=== PATIENT | female | born 2000 | race Caucasian/White ===

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

== ENCOUNTER 2022-08-27 23:56 | Emergency (ER) | payer BC, SELFPAY ==
[2022-08-27 23:57] VITALS: BP 147/93; PULSE 109; RESP 18; TEMP 36.7; O2SAT 97; BMI 26.9
[2022-08-28] MEDS: Lidocaine 2% /Epi 1:100 (20ml) 20 ML VIAL INFILT (00:39)
--- NOTE | 2022-08-28 01:11 | EDS_ITS ---
HPI History of Present Illness Chief Complaint: Laceration Narrative Narrative: Patient is a 22-year-old female with no significant past medical history. She states roughly 1 hour prior to arrival she was lying in a hammock with 2 other friends. She states that with 3 of them in the hammock the support beams gave way and they fell to the ground. She states once they fell the support beams fell on top of them and she was struck in the right side of face by one of the wooden beams. She denies any loss of consciousness or history of bleeding disorder or blood thinner use but states that she sustained a laceration to the right face. With concern that she may need sutures she presents for evaluation [facility] Medical History (Updated 08/28/22 @ 01:[address] Siddhartha Velázquez, DO) Fatigue Home Medications sulfamethoxazole 800 mg-trimethoprim 160 mg tablet (Bactrim DS) 1 tab PO BID 7 days #14 tabs 08/28/22 [Rx Last Taken Unknown] Allergy/AdvReac Type Severity Reaction Status Date / Time Penicillins Allergy Rash Verified 05/06/19 10:48 Social History (Updated 05/06/19 @ 12:30 by Donato RIVAS, EVELYN) Smoking Status: Never smoker alcohol intake: never ROS ROS ED Constitutional Constitutional ED: Denies chills or fever(s) Eyes Eyes: Denies blurry vision or change in vision ENT ENT ED: Reports other Details: Positive facial laceration negative nosebleed ; Denies sore throat Cardiovascular Cardiovascular: Denies chest pain Respiratory/Chest Respiratory/Chest: Denies cough or dyspnea Gastrointestinal Gastrointestinal: Denies abdominal pain, diarrhea, nausea or vomiting Genitourinary Genitourinary ED: Denies dysuria Musculoskeletal Musculoskeletal: Denies back pain or neck pain Integumentary Reports other Details: Positive facial laceration Neurologic Neurologic: Denies headache(s), paresthesias or weakness Hematologic/Lymphatic Hematologic/Lymphatic: Denies easy bleeding or easy bruising EXAM Physical Exam Const Vital Signs: 08/27/22 23:57 Temperature 98.1 F Temperature Source Temporal Pulse Rate 109 H Respiratory Rate 18 Blood Pressure 147/93 H Blood Pressure Mean 111 Pulse Ox 97 Oxygen Delivery Method Room Air Positive well nourished and well developed General Appearance ED: well developed HEENT HEENT Narrative: No signs of depressed or basilar skull fracture No septal hematoma Patient has a triangular 1.5 cm full-thickness laceration to the right upper cheek just underneath the nasal labial fold. There is minimal ooze of blood and no foreign body. No signs of maxilla or mandible fracture. No dental fracture noted Eyes PERRL and EOMs intact bilaterally Eyes Narrative: No hyphema Neck supple Neck Narrative: No bony deformity or step-off of the cervical spine no midline pain on palpation Resp normal respiratory effort and clear to auscultation bilaterally Cardio regular rate and regular rhythm Back/Spine Back/Spine Narrative: No bony deformity or step-off of the thoracic or lumbar spine no midline pain on palpation Extremity normal to inspection Neuro oriented x3, CN's II-XII intact bilaterally and no sensory deficits noted Sensorium / Orientation: alert Psych mental status grossly normal Skin Skin Narrative: Laceration to the right cheek/face as documented above MDM MDM MDM Narrative Medical decision making narrative: Patient presented to the ER awake and alert with no signs of depressed or basilar skull fracture or physical exam or history findings to suggest long bone injury or spine injury. Differential diagnosis includes facial laceration versus dental fracture versus maxilla fracture versus skull fracture versus epidural or subdural hematoma. I discussed with patient and family obtaining a CT of the head and face secondary to this but as I have low concern for underlying jaw fracture or underlying traumatic brain injury we did not feel this was necessary. We discussed updating her tetanus but as the laceration was caused by wooden object not metal they have low concern for this as well and do not want the tetanus update. Therefore at this time the wound was closed as documented below and as it is a full-thickness wound there is concern for secondary infection from the oral mucosa so she be placed on prophylactic antibiotics. Otherwise patient is safe for discharge now the wound has been closed and can follow-up with your family doctor for repeat evaluation Patient had the facial laceration cleaned with chlorhexidine. It was anesthetized with 6 mL of 2% lidocaine with epinephrine in local fashion. The wound was copiously irrigated with normal saline. Then ten 6-0 Ethilon sutures were placed in simple interrupted fashion. This brought the wound together good approximation. Patient tolerated procedure well without complication. History & Record Review Discussion w/independent historian: Patient and Family Discharge Plan Triage Chief Complaint: Laceration ED Provider: Siddhartha Velázquez Dx/Rx/DC Orders Clinical Impression: Facial laceration Instructions: ED Laceration: All Closures Prescriptions: New sulfamethoxazole-trimethoprim [Bactrim DS] 800-160 mg tablet 1 tab PO BID 7 Days Qty: 14 0RF Primary Care Provider: Tariq Allison Referrals: Tariq Allison MD [Primary Care Provider] - Activity Restrictions/Additional Instructions: Please see your family doctor or return to the ER in 5 to 7 days for suture removal. Please take the antibiotic as directed to prevent secondary infection Disposition Disposition: Home, Self Care Discharge Date/Time: 08/28/22 01:20
[2022-08-28] MEDS: Smz/Tmp Ds Tablet 1 TABLET PO (01:15)
== END 2022-08-28 01:20 | disposition home or self-care (01) ==
PROVIDERS: Emergency Provider Emergency Medicine; PCP Family Medicine; Visit Provider Emergency Medicine
DX: S01.81XA Laceration without foreign body of other part of head, initial encounter (principal); W01.0XXA Fall on same level from slipping, tripping and stumbling without subsequent striking against object, initial encounter
CPT/HCPCS: 99283

== ENCOUNTER → 2023-04-07 | Outpatient (CLI) | payer BC, SELFPAY ==
--- OUTSIDE RECORDS SUMMARY | 2023-04-07 10:07 | XMS RPT_ITS | CCD ---
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 Name Role Phone HILTON BRAUN Unavailable Unavailable PATRIA JORGE Unavailable Unavailable LOKI PAREDES Unavailable Unavailable ESTUARDO QUINTANA Primary Care Unavailable FER JUNIOR CNP Attending Unavailable SATNAM FERNANDEZ PA-C Attending Unavail able PHYSICIAN, PATIENT UNSURE Primary Care Unavai labshaye PHYSICIAN, PATIENT UNSURE Primary Care Unavai lable MAJOR HO Attending Unavaila ble Allergies Allergy Classification Reported Allergen(s) Allergy Type Date of Onset Reaction(s) Facility (1 source) Penicillins; Translations: [PENICILLINS] Propensity to adverse reactions to drug (disorder) 5 [facility] Repository Results Test Name Value Interpretation Reference Range Facil ity Encounters Encounter Date Encounter Type Care Provider Facility Start: 03-12-2023 ambulatory ESTUARDO QUINTANA Facility:[id number] Start: 03-12-2023 End: 03-12-2023 ambulatory PATIENT UNSURE PHYSICIAN Facility:A Start: 04-20-2022 End: 04-20-2022 ambulatory SATNAM FERNANDEZ PA-C Facility:A Start: 09-24-2017 Ambulatory HILTON BRAUN [facility] Payers Date Payer Category Payer Unknown [id number] 2001 Unknown [id number] 2001 Unknown [id number] 2001 Unknown [id number] Unknown Summary Purpose Family History No Family History Records FoundNo Family History Records FoundNo Family History Records FoundNo Family History Records Found Advance Directives No Advanced Directives Records FoundNo Advanced Directives Records FoundNo Advanced Directives Records FoundNo Advanced Directives Records Found Additional Source Comments INFORMATION SOURCE (unrecogn ized section and content) DATE CREATED AUTHOR AUTHOR'S ORGANIZ ATION 05/23/2021 [facility] DATE CREATED AUTHOR AUTHOR'S ORGANIZ ATION 03/14/2023 [facility] DATE CREATED AUTHOR AUTHOR'S ORGANIZ ATION 03/19/2023 [facility] ([place]) FOR RECORDS PERTAINING TO PATIENTS WHO ARE OR HAVE BEEN ENROLLED IN A CHEMICAL DEPENDENCY/SUBSTANCEABUSE PROGRAM, SOME INFORMATION MAY BE OMITTED. This clinical summary was aggregated from multiple sources. Caution should be exercised in using it in the provision of clinical care. This summary normalizes information from multiple sources, and as a consequence, information in this document may materially change the coding, format and clinical context of patient data. In addition, data may be omitted in some cases. CLINICAL DECISIONS SHOULD BE BASED ON THE PRIMARY CLINICAL RECORDS. [employer] [facility]. provides no warranty or guarantee of the accuracy or completeness of information in this document.
[2023-04-07 11:51] LABS: AST(SGOT) 19 U/L (15-37); Alanine Aminotransfer ALT/SGPT 27 U/L (13-56); Cholesterol 172 mg/dL (200); Follicle Stimulating Hormone 1.9 mIU/mL; High Density Lipoprotein 86 mg/dL; Prolactin 16.8 ng/mL; T4 Free Direct 0.91 ng/dL (0.76-1.46); Thyroid Stim Hormone (TSH) 1.95 uIU/mL (0.358-3.74); Triglycerides 53 mg/dL; Very Low Density Lipoprotein 11 mg/dL (5-40)
[2023-04-16 11:10] LABS: Androstenedione 68 ng/dL (41-262); LDL, Direct 120295 90 mg/dL (0-99); Sex Hormone-binding Globulin 81.3 nmol/L (24.6-122.0); Testosterone, % Free 1.63 % (0.50-2.80); Testosterone, Free 0.23 ng/dL (0.10-0.85); Testosterone, Total 14 ng/dL (13-71)
== END | disposition home or self-care (01) ==
LOC: LAB 10:06
PROVIDERS: PCP Family Medicine; Referring Provider Dermatology Pediatric Dermatology; Visit Provider Dermatology Pediatric Dermatology
DX: E28.2 Polycystic ovarian syndrome (principal); L70.0 Acne vulgaris; L68.0 Hirsutism; B07.8 Other viral warts; R23.8 Other skin changes; Z79.899 Other long term (current) drug therapy
CPT/HCPCS: 36415; 80061; 82157; 82627; 83001; 83721; 84146; 84270; 84402; 84403; 84439; 84443; 84450; 84460; 82626

== ENCOUNTER → 2023-07-06 | Outpatient (CLI) | payer BC, SELFPAY | END | disposition home or self-care (01) | PROVIDERS: PCP Family Medicine; Referring Provider Physician Assistant Surgical; Visit Provider Physician Assistant Surgical | DX: N39.0 Urinary tract infection, site not specified (principal) | CPT/HCPCS: 87077; 87086; 87088 ==

== ENCOUNTER 2024-08-14 18:51 | Emergency (ER) | payer BC, SELFPAY ==
[2024-08-14 18:51] VITALS: BP 134/70; PULSE 82; RESP 14; TEMP 36.3; O2SAT 95; BMI 25.4
== END 2024-08-14 19:17 | disposition left against medical advice (07) ==
LOC: ED 19:18
PROVIDERS: PCP Family Medicine
DX: Z53.21 Procedure and treatment not carried out due to patient leaving prior to being seen by health care provider (principal)